=== PATIENT | female | born 1950 | race Caucasian/White ===

== ENCOUNTER → 2020-09-16 | Day surgery (SDC) | payer MEDICARE, OTHER | LOC: BICULT 10:38 | PROVIDERS: ATTEND Family Medicine | PROC: 0H9U3ZX Drainage of Left Breast, Percutaneous Approach, Diagnostic (ICD-10-PCS; principal; 2020-09-16) | DX: C50.212 Malignant neoplasm of upper-inner quadrant of left female breast (principal) | CPT/HCPCS: 19083; 88305; 88341; 88342; 88360 ==

== ENCOUNTER 2020-10-12 09:25 | Outpatient (CLI) | payer MEDICARE, OTHER ==
[2020-10-12 10:44] LABS: #Basophils 0.1 10x3/uL (0.0-0.2); #Eosinphils 0.2 10x3/uL (0.0-0.5); #Monocytes 0.5 10x3/uL (0.0-1.1); #Neutrophils 3.5 10x3/uL (1.5-8.4); %Basophils 0.8 % (0.0-2.0); %Eosinophils 2.7 % (0.0-6.0); %Monocytes 7.4 % (0.0-10.0); %Neutrophils 56.8 % (40.0-75.0); Hemoglobin 13.9 g/dL (12.0-15.5); Mean Corpuscular Hemoglobin 31.7 pg (27.0-33.0); Mean Corpuscular Volume 95.9 fl (81.6-98.3); Mean Platelet Volume 10.7 fl (7.4-10.4); Platelet Count 250 10x3/uL (150-450); RBC Distribution Width 12.9 % (11.5-14.5); Red Blood Cell (RBC) Count 4.39 10x6/uL (3.90-5.03); White Blood Cell (WBC) Count 6.2 10x3/uL (3.5-10.5)
[2020-10-12 10:56] LABS: Anion Gap 13 mmol/L (10-20); BUN (Urea Nitrogen) 9 mg/dL (9.8-20.1); Calc. Creatinine Clearance 0 mL/min (70-130); Calcium 9.7 mg/dL (7.8-10.44); Carbon Dioxide 26 mmol/L (23-31); Chloride 107 mmol/L (98-107); Glucose 90 mg/dL (80-115); Potassium 4.1 mmol/L (3.5-5.1); Sodium 142 mmol/L (136-145)
== END 2020-10-12 09:26 | disposition home or self-care (01) ==
LOC: LABBT 09:25
PROVIDERS: ATTEND Surgery
DX: Z01.812 Encounter for preprocedural laboratory examination (principal); C50.912 Malignant neoplasm of unspecified site of left female breast
CPT/HCPCS: 80048; 85025

== ENCOUNTER 2020-10-13 16:15 | Outpatient (CLI) | payer MEDICARE, OTHER ==
[2020-10-13 17:14] LABS: PTT 24.8 sec (22.0-33.0); Prothrombin Time 10.8 sec (9.5-12.1)
[2020-10-13 21:10] LABS: PT - Undiluted 12.5 SEC (12.0-14.7); PTT - Undiluted 31.1 SEC (22.9-36.1)
[2020-10-13 21:46] LABS: EPI 108 SEC (67-199)
[2020-10-13 21:47] LABS: Platelet Count 264 thou/uL (130-400)
== END 2020-10-13 16:16 | disposition home or self-care (01) ==
LOC: LABBT 16:15
PROVIDERS: ATTEND Surgery
DX: Z01.812 Encounter for preprocedural laboratory examination (principal); C50.912 Malignant neoplasm of unspecified site of left female breast
CPT/HCPCS: 80500; 85576; 85610; 85730

== ENCOUNTER 2020-10-15 07:47 | Day surgery (SDC) | payer MEDICARE, OTHER ==
[2020-10-14 12:07] VITALS: BMI 23.3
[2020-10-15] MEDS ORDERED: Levofloxacin 500 mg/D5W 100 ml Premix Bag ONE (13:02)
[2020-10-15] MEDS ORDERED: Bupivacaine 0.25% HCL 30 ML VIAL ONE (13:04)
[2020-10-15] MEDS ORDERED: Lidocaine 1% w/Epinephrine 1:100K 20 ML VIAL ONE (13:04)
[2020-10-15] MEDS ORDERED: Methylene Blue 50 MG/10 ML AMPUL ONE (13:04)
[2020-10-15] MEDS ORDERED: Fentanyl 100 MCG/2 ML VIAL ONE ×2 (13:12→15:23)
[2020-10-15] MEDS ORDERED: PROPOFOL 200 MG/20 ML VIAL ONE (13:37)
[2020-10-15] MEDS ORDERED: ePHEDrine Sulfate 50 MG/10 ML VIAL ONE (13:37)
[2020-10-15] MEDS ORDERED: Ondansetron PF 4 MG/2 ML Vial ONE (13:37)
[2020-10-15] MEDS ORDERED: Dexamethasone 20 MG/5 ML VIAL ONE (13:37)
[2020-10-15] MEDS ORDERED: PHENYLEPHRINE-NS 100 MCG/ML 10 ML SYRINGE ONE (13:37)
[2020-10-15] MEDS ORDERED: Lidocaine 1% PF 5 ML VIAL ONE (13:37)
== END 2020-10-15 16:51 | disposition home or self-care (01) ==
LOC: SDC 07:47
PROVIDERS: ATTEND Surgery
PROC: 0HBCXZZ Excision of Left Upper Arm Skin, External Approach (ICD-10-PCS; principal; 2020-10-15)
PROC: 0HBU0ZZ Excision of Left Breast, Open Approach (ICD-10-PCS; 2020-10-15)
PROC: 07B60ZX Excision of Left Axillary Lymphatic, Open Approach, Diagnostic (ICD-10-PCS; 2020-10-15)
DX: C50.412 Malignant neoplasm of upper-outer quadrant of left female breast (principal); C77.3 Secondary and unspecified malignant neoplasm of axilla and upper limb lymph nodes; L82.1 Other seborrheic keratosis; K21.9 Gastro-esophageal reflux disease without esophagitis; M85.80 Other specified disorders of bone density and structure, unspecified site; Z17.0 Estrogen receptor positive status [ER+]; Z79.899 Other long term (current) drug therapy; Z88.0 Allergy status to penicillin; Z88.2 Allergy status to sulfonamides; Z88.5 Allergy status to narcotic agent; Z88.6 Allergy status to analgesic agent; Z91.040 Latex allergy status
CPT/HCPCS: 11401; 19281; 19301; 38525; 38900; 76098; 78195; 88305; 88307; A9541; Q9968; J1100; J1956; J2405; J2704; J3010; S0020